=== PATIENT | female | born 1995 | race Caucasian/White ===

== ENCOUNTER 2021-10-31 12:51 | Emergency (ER) | payer OTHER, SELFPAY ==
[2021-10-31 13:13] VITALS: BP 142/94; PULSE 92; RESP 18; TEMP 36.3; O2SAT 99
--- NOTE | 2021-10-31 13:52 | ED.ABDPAIN ---
HPI - Abdominal Pain General Chief Complaint: Abdominal Pain Stated Complaint: Lower abdomen pain History of Present Illness HPI narrative: Patient is a 26-year-old female presents to the [facility] via POV for evaluation of right lower abdominal pain that has been present for 2 days. She reports her pain is constant and sharp in nature. Current pain level is 2-3 out of 10. Denies taking OTC meds for symptoms. Patient reports pain is better with positional seating and worsens with coughing and applied pressure. Denies abdominal history. Patient denies and UTI symptoms. Related Data Home Medications Medication Instructions Recorded Confirmed bupropion HCl 150 mg 24 hr tablet, 150 mg PO BID 10/31/21 10/31/21 extended release fluoxetine 20 mg capsule 20 mg BID 10/31/21 10/31/21 levonorgestrel 20 mcg/24 hours (7 1 device intrauterine ONCE 10/31/21 10/31/21 yrs) 52 mg intrauterine device (Mirena) Allergies Allergy/AdvReac Type Severity Reaction Status Date / Time No Known Allergies Allergy Verified 10/31/21 13:22 Review of Systems Review of Systems: Denies past abdominal medical history. Pertinent negatives fever, chills, sweats, malaise, poor p.o. intake, change in appetite, recent weight loss, lymphadenopathy, headache, sore throat, dizziness, LOC, urinary sxs, back/flank pain, extremity paresthesias, blood in stool, nausea, vomiting, diarrhea, constipation, belching, bloating, dry mouth, heartburn, jaundice, vomiting blood, and testicular pain. PMFSH Comments I have reviewed and agree with the patient's past medical, surgical, social, and family hx as documented by the RN. There is no relevant family history pertinent to the presenting complaint. Exam Narrative: GENERAL: Well-appearing, well-nourished, and in no acute distress. HEAD: Normocephalic, atraumatic. No sinus tenderness or facial swelling appreciated. EYES: PERRLA and EOMI. No evidence of erythema, swelling, or drainage. ENT: Mucous membranes moist and pink. Uvula is midline without erythema and swelling. No evidence of petechial rash, cobblestoning, lesions, ulcers, erythema, swelling, exudates, peritonsillar abscess, tenting, or drooling. Breath odor and voice normal. NECK: Supple. No Lymphadenopathy or nuchal rigidity appreciated. CHEST: Bilateral lung juarez are clear to auscultation. No respiratory distress. No evidence of cough or pleuritic cp upon examination. HEART: Regular rate and rhythm. No murmur, gallop, or rub heard. ABDOMEN: Soft, nondistended, normal active bowel sounds in all quadrants. No guarding. No rebound tenderness. No pulsatile or palpable abdominal mass(es). No CVAT. Moderate right lower abd tenderness is present upon palpation. + Psoas sign EXTREMITIES: Normal range of motion. No edema. SKIN: Warm, dry, no rash. Excellent skin turgor. NEURO: No focal deficits. Alert and oriented x3. Course Course Level of Care: Express Care Visit Vital Signs Vital signs: Vital Signs Temperature 97.4 F L 10/31/21 13:13 Pulse Rate 92 10/31/21 13:13 Respiratory Rate 18 10/31/21 13:13 Blood Pressure 142/94 H 10/31/21 13:13 Pulse Oximetry 99 10/31/21 13:13 Oxygen Delivery Room Air 10/31/21 13:13 Temperature 97.4 F L 10/31/21 13:13 Pulse Rate 92 10/31/21 13:13 Respiratory Rate 18 10/31/21 13:13 Blood Pressure 142/94 H 10/31/21 13:13 Pulse Oximetry 99 10/31/21 13:13 Oxygen Delivery Room Air 10/31/21 13:13 Due to an elevated blood pressure, I had a detailed discussion with the patient and/or guardian regarding the need for follow-up with their primary care provider within the next 3-4 days. Patient verbalized understanding and agreed. MDM - Abdominal Pain Lab Data Labs: UCG Bedside Result Negative Reference Range: Negative Urine Glucose Negative Refe
== END 2021-10-31 13:35 | disposition short-term general hospital (02) ==
PROVIDERS: Emergency Provider Nurse Practitioner Family
DX: R10.31 Right lower quadrant pain (principal); F41.9 Anxiety disorder, unspecified
CPT/HCPCS: 81003; 81025; 99212; G0463